=== PATIENT | female | born 1965 | race Two or more races ===

== ENCOUNTER 2016-10-03 13:20 | Emergency (ER) | payer MEDICARE ==
[2016-10-03 13:27] VITALS: TEMP 98.7; BMI 23.6
[2016-10-03] MEDS ORDERED: SODIUM CHLORIDE 1,000 ML IV STA (15:11)
[2016-10-03] MEDS ORDERED: ONDANSETRON 4 MG/2 ML VIAL IVPUSH ONE (15:11)
--- NOTE | 2016-10-03 15:11 | PDOC ---
History of Present Illness - General History Source: Patient Exam Limitations: No Limitations - History of Present Illness Initial Comments: 10/03/16 15:33 The patient is a 51 year old female, with a significant past medical history of cardiac disease, diabetes, hypertension, hyperlipidemia, and chronic neck pain, who presents to the emergency department complaining of dizziness s/p cortisone injection for neck pain 3 days ago. The patient reports she received her injection in her right upper back. The patient reports paresthesias to the left side of her face. She reports weakness and paresthesias to her arms bilaterally. She reports nausea and vomiting secondary to dizziness earlier today. The patient describes her dizziness as if the room were spinning. Patient reports her pain is exacerbated when turning her head, and does not report any alleviating factors. She denies any chest pain, shortness of breath, diaphoresis, or palpitations. She denies any fever, chills, cough, headache, or dizziness. She denies any diarrhea, constipation, or changes in urination patterns. Allergies: NKDA, Pork/Porcine containing products, peppers Past Surgical History: Tubal Ligation, Cholecystectomy Social History: Non-smoker. Denies alcohol or drug use. PCP:Dr. Pina <Orlando Hunter - Last Filed: 10/03/16 17:36> <Deanne Srivastava - Last Filed: 10/05/16 12:27> - General Chief Complaint: Lightheaded Stated Complaint: VOMITING, DIZIZNESS Time Seen by Provider: 10/03/16 14:59 Past History <Orlando Hunter - Last Filed: 10/03/16 17:36> - Past Medical History Cardiac Disorders: Yes (palpitations) Diabetes: Yes GI Disorders: Yes HTN: Yes Hypercholesterolemia: Yes Suicide Attempt (Hx): No - Surgical History Abdominal Surgery: Yes (TUBAL LIGATION) Cholecystectomy: Yes - Psycho/Social/Smoking Cessation Hx Anxiety: No Suicidal Ideation: No Smoking Status: No Smoking History: Never smoked Have you smoked in the past 12 months: No Number of Cigarettes Smoked Daily: 0 If you are a former smoker, when did you quit?: > 10 yrs ago Information on smoking cessation initiated: No Hx Alcohol Use: No Drug/Substance Use Hx: No Substance Use Type: None Hx Substance Use Treatment: No <Deanne Srivastava - Last Filed: 10/05/16 12:27> - Past Medical History Allergies/Adverse Reactions: Allergies Allergy/AdvReac Type Severity Reaction Status Date / Time No Known Drug Allergies Allergy Verified 10/03/16 13:27 Pork/Porcine Containing Allergy Rash Verified 10/03/16 13:27 Products [Pork/Porcine Product Derivatives] "EQUATORIAL GUINEAN SPICES" AdvReac Uncoded 10/03/16 13:27 Home Medications: Ambulatory Orders Acetaminophen W/ Codeine #3 [Tylenol # 3 -] 1 tab PO Q6H PRN 10/03/16 Atorvastatin Ca [Lipitor] 10 mg PO HS 10/03/16 Cholecalciferol (Vitamin D3) [Vitamin D3] 5,000 unit PO DAILY 10/03/16 Famotidine [Pepcid] 20 mg PO DAILY 10/03/16 Meclizine HCl [Antivert -] 25 mg PO QID PRN #20 tablet 10/03/16 Metformin HCl [Metformin HCl ER] 500 mg PO DAILY 10/03/16 Pantoprazole Sodium [Protonix] 40 mg PO DAILY 10/03/16 Review of Systems - Review of Systems Able to Perform ROS?: Yes Comments:: 10/03/16 15:19 GENERAL/CONSTITUTIONAL: No fever or chills. HEAD, EYES, EARS, NOSE AND THROAT: No change in vision. No ear pain or discharge. No sore throat. CARDIOVASCULAR: No chest pain or shortness of breath. RESPIRATORY: No cough, wheezing, or hemoptysis. GASTROINTESTINAL: Yes: +Nausea, +vomiting. No diarrhea or constipation. GENITOURINARY: No dysuria, frequency, or change in urination. MUSCULOSKELETAL: Yes:+Weakness and paresthesias in arms bilaterally. No joint or muscle swelling or pain. No neck or back pain. SKIN: No rash NEUROLOGIC: Yes: +dizziness, +vertigo, +paresthesias to the left side of face. No headache, loss of consciousness, or change in strength. ENDOCRINE: No increased thirst. No abnormal weight change. HEMATOLOGIC/LYMPHATIC: No anemia, easy bleeding, or history of blood clots. ALLERGIC/IMMUNOLOGIC: No hives or skin allergy. <HunterGiomilsy - Last Filed: 10/03/16 17:36> *Physical Exam - Vital Signs Last Vital Signs Temp Pulse Resp BP Pulse Ox 98.7 F 74 18 138/99 98 10/03/16 13:24 10/03/16 13:24 10/03/16 13:24 10/03/16 13:24 10/03/16 13:24 - Physical Exam Comments: 10/03/16 15:18 GENERAL: Awake, alert, and fully oriented, in no acute distress HEAD: No signs of trauma. EYES: PERRLA, EOMI, sclera anicteric, conjunctiva clear ENT: Auricles normal inspection, hearing grossly normal, TMs normal bilaterally , nares patent, oropharynx clear without exudates. Dry mucosa. Symptoms were elicited by turning head side to side. NECK: Normal ROM, supple, no lymphadenopathy, JVD, or masses LUNGS: Breath sounds equal, clear to auscultation bilaterally. No wheezes, and no crackles HEART: Regular rate and rhythm, normal S1 and S2, no murmurs, rubs or gallops ABDOMEN: Soft, nontender, normoactive bowel sounds. No guarding, no rebound. No masses EXTREMITIES: Normal range of motion, no edema. No clubbing or cyanosis. No cords, erythema, or tenderness NEUROLOGICAL: Cranial nerves II through XII grossly intact. Normal speech, normal gait SKIN: Warm, Dry, normal turgor, no rashes or lesions noted. <Orlando Hunter - Last Filed: 10/03/16 17:36> - Vital Signs Last Vital Signs Temp Pulse Resp BP Pulse Ox 98.7 F 74 18 138/99 98 10/03/16 13:24 10/03/16 13:24 10/03/16 13:24 10/03/16 13:24 10/03/16 13:24 <Deanne Srivastava - Last Filed: 10/05/16 12:27> ED Treatment Course - LABORATORY CBC & Chemistry Diagram: 10/03/16 15:15 10/03/16 15:15 - RADIOLOGY Radiograph Interpretation: 10/03/16 16:46 EXAM: Head CT INTERPRETED BY: Dr. Hernandez REVIEWED BY: Dr. Srivastava IMPRESSION: Negative exam. No definite CT abnormality is identified. <Orlando Hunter - Last Filed: 10/03/16 17:36> - LABORATORY CBC & Chemistry Diagram: 10/03/16 15:15 10/03/16 15:15 <Deanne Srivastava - Last Filed: 10/05/16 12:27> Medical Decision Making - Medical Decision Making 10/03/16 17:43 Pt reassessed. She states her symptoms have resolved with zofran, IVF, and meclizine. CTH and labs reviewed, no acute findings. Stable for DC home. <Deanne Srivastava - Last Filed: 10/05/16 12:27> *DC/Admit/Observation/Transfer - Attestations Scribe Attestion: 10/03/16 15:18 Documentation prepared by Orlando Hunter, acting as medical investigator for Deanne Srivastava MD. <Orlando Hunter - Last Filed: 10/03/16 17:36> - Discharge Dispostion Admit: No <Deanne Srivastava - Last Filed: 10/05/16 12:27> Diagnosis at time of Disposition: Vertigo - Discharge Dispostion Disposition: HOME Condition at time of disposition: Improved - Prescriptions Prescriptions: Meclizine HCl [Antivert -] 25 mg PO QID PRN #20 tablet PRN Reason: Vertigo - Referrals Referrals: Ashley Pina [Primary Care Provider] - - Patient Instructions Printed Discharge Instructions: DI for Vertigo Print Language: BOTSWANAN
[2016-10-03] MEDS ORDERED: ONDANSETRON 4 MG/2 ML VIAL ONE (15:17)
[2016-10-03 15:31] LABS: BASOPHIL 0.6 % (0-2.0); EOSINOPHIL 0.6 % (0-4.5); MCH 30.6 pg (25.7-33.7); MCHC 33.9 g/dl (32.0-36.0); MEAN CELL VOLUME 90.5 fl (80-96); MEAN PLT VOLUME 8.6 fl (7.5-11.1); NEUTROPHILS 65.5 % (42.8-82.8); PLATELET COUNT 193 K/MM3 (134-434); RDW 12.8 % (11.6-15.6); WHITE BLOOD COUNT 8.4 K/mm3 (4.0-10.0)
[2016-10-03 15:58] LABS: ALBUMIN 3.7 g/dl (3.4-5.0); ANION GAP 6 (8-16); BILIRUBIN,TOTAL 0.2 mg/dL (0.2-1.0); CALCIUM 8.9 mg/dL (8.5-10.1); CO2 30 mmol/L (21-32); COCKROFT - GAULT 94.435; CREATININE 0.7 mg/dL (0.55-1.02); GLUCOSE,RANDOM 118 mg/dL (74-106); SGOT/AST 18 U/L (15-37); SGPT/ALT 31 U/L (12-78); TOT PROT 7.4 g/dl (6.4-8.2)
[2016-10-03 15:59] LABS: ALK PHOS 84 U/L (45-117)
[2016-10-03] MEDS ORDERED: MECLIZINE HCL 25 MG TABLET (FP) PO ONE (16:47)
[2016-10-03] MEDS ORDERED: MECLIZINE HCL 25 MG TABLET (FP) ONE (16:50)
[2016-10-03 17:59] VITALS: BP 141/87; PULSE 64
--- NOTE | 2016-10-04 12:28 | EKG ---
Test Reason : Blood Pressure : / mmHG Vent. Rate : 065 BPM Atrial Rate : 065 BPM P-R Int : 158 ms QRS Dur : 076 ms QT Int : 398 ms P-R-T Axes : 030 023 021 degrees QTc Int : 413 ms NORMAL SINUS RHYTHM WHEN COMPARED WITH ECG OF 28-AUG-2011 12:47, NONSPECIFIC T WAVE ABNORMALITY HAS REPLACED INVERTED T WAVES IN ANTERIOR LEADS Confirmed by TOYA ALVAREZ MD ([id number]) on 10/04/2016 12:28:20 PM Referred By: Confirmed By:TOYA ALVAREZ MD
== END 2016-10-03 17:59 | disposition home or self-care (01) ==
LOC: JER 13:20
PROC: 3E033GC Introduction of Other Therapeutic Substance into Peripheral Vein, Percutaneous Approach (ICD-10-PCS; principal; 2016-10-03)
DX: R42 Dizziness and giddiness (principal); I10 Essential (primary) hypertension; E11.9 Type 2 diabetes mellitus without complications; Z79.84 Long term (current) use of oral hypoglycemic drugs; E00.2 Congenital iodine-deficiency syndrome, mixed type; E78.00 Pure hypercholesterolemia, unspecified
CPT/HCPCS: 36415; 70450-TC; 80053; 85025; 93005; 93010; 96374; 99284-25

== ENCOUNTER 2017-07-15 07:04 | Emergency (ER) | payer MEDICARE ==
[2017-07-15 07:17] VITALS: BP 127/93; PULSE 87; TEMP 98.2; BMI 23.3
--- NOTE | 2017-07-15 08:23 | PDOC ---
History of Present Illness - General Chief Complaint: Pain Stated Complaint: SIDE PAIN Time Seen by Provider: 07/15/17 08:23 Past History - Past Medical History Allergies/Adverse Reactions: Allergies Allergy/AdvReac Type Severity Reaction Status Date / Time No Known Drug Allergies Allergy Verified 07/15/17 07:13 Pork/Porcine Containing Allergy Rash Verified 07/15/17 07:13 Products [Pork/Porcine Product Derivatives] "LAO SPICES" AdvReac Uncoded 07/15/17 07:13 Home Medications: Ambulatory Orders Acetaminophen W/ Codeine #3 [Tylenol # 3 -] 1 tab PO Q6H PRN 10/03/16 Atorvastatin Ca [Lipitor] 10 mg PO HS 10/03/16 Cholecalciferol (Vitamin D3) [Vitamin D3] 5,000 unit PO DAILY 10/03/16 Famotidine [Pepcid] 20 mg PO DAILY 10/03/16 Meclizine HCl [Antivert -] 25 mg PO QID PRN #20 tablet 10/03/16 Metformin HCl [Metformin HCl ER] 500 mg PO DAILY 10/03/16 Pantoprazole Sodium [Protonix] 40 mg PO DAILY 10/03/16 Cardiac Disorders: Yes (palpitations) COPD: No Diabetes: Yes GI Disorders: Yes HTN: Yes Hypercholesterolemia: Yes - Surgical History Abdominal Surgery: Yes (TUBAL LIGATION) Cholecystectomy: Yes - Suicide/Smoking/Psychosocial Hx Smoking Status: No Smoking History: Never smoked Have you smoked in the past 12 months: No Number of Cigarettes Smoked Daily: 0 If you are a former smoker, when did you quit?: > 10 yrs ago Information on smoking cessation initiated: No Hx Alcohol Use: No Drug/Substance Use Hx: No Substance Use Type: None Hx Substance Use Treatment: No *Physical Exam - Vital Signs Last Vital Signs Temp Pulse Resp BP Pulse Ox 98.2 F 87 18 127/93 100 07/15/17 07:15 07/15/17 07:15 07/15/17 07:15 07/15/17 07:15 07/15/17 07:15 *DC/Admit/Observation/Transfer - Referrals Referrals: Ashley Pina [Primary Care Provider] - - Patient Instructions - Post Discharge Activity
[2017-07-15] MEDS ORDERED: ACETAMINOPHEN 500 MG TABLET (FP) PO ONE (10:17)
[2017-07-15] MEDS ORDERED: LACTATED RINGERS SOLUTION 1,000 ML/1,000 ML INFUS.BAG IV ONE (10:17)
[2017-07-15] MEDS ORDERED: ACETAMINOPHEN 325 MG TABLET (FP) ONE (10:23)
--- NOTE | 2017-07-15 10:38 | PDOC ---
History of Present Illness - General History Source: Patient Exam Limitations: No Limitations - History of Present Illness Initial Comments: 07/15/17 13:27 The patient is a 52 year old female, with a significant past medical history of cardiac disease, DM, HTN, HLD, and chronic neck pain, who presents to the emergency department with for about 3 days of right sided abdominal and flank pain. The patient reports having constant abdominal pain that often radiates to her back and flank area. She notes her pain is often made worse with certain motions of her abdomen. She ranks her pain a 8/10 in pain intenisty. She denies recent fevers, chills, headache or dizziness. She denies recent nausea, vomit, diarrhea or constipation. She denies recent dysuria, frequency, urgency or hematuria. She denies recent chest pain or shortness of breath. Allergies: NKDA Past surgical history: Recent back surgery (2 months ago). Cholecystectomy. Tubal Ligation. Social history: Nonsmoker. Denies EtOH use and recreational drug use. PCP: <Benjamin Kinney - Last Filed: 07/15/17 13:27> <Milady Rivas - Last Filed: 07/15/17 16:29> - General Chief Complaint: Pain Stated Complaint: SIDE PAIN Time Seen by Provider: 07/15/17 08:23 Past History <Benjamin Kinney - Last Filed: 07/15/17 13:27> - Past Medical History Cardiac Disorders: Yes (palpitations) COPD: No Diabetes: Yes GI Disorders: Yes HTN: Yes Hypercholesterolemia: Yes - Surgical History Abdominal Surgery: Yes (TUBAL LIGATION) Cholecystectomy: Yes - Suicide/Smoking/Psychosocial Hx Smoking Status: No Smoking History: Never smoked Have you smoked in the past 12 months: No Number of Cigarettes Smoked Daily: 0 If you are a former smoker, when did you quit?: > 10 yrs ago Information on smoking cessation initiated: No Hx Alcohol Use: No Drug/Substance Use Hx: No Substance Use Type: None Hx Substance Use Treatment: No <Milady Rivas - Last Filed: 07/15/17 16:29> - Past Medical History Allergies/Adverse Reactions: Allergies Allergy/AdvReac Type Severity Reaction Status Date / Time No Known Drug Allergies Allergy Verified 07/15/17 07:13 Pork/Porcine Containing Allergy Rash Verified 07/15/17 07:13 Products [Pork/Porcine Product Derivatives] "DUTCH SPICES" AdvReac Uncoded 07/15/17 07:13 Home Medications: Ambulatory Orders Acetaminophen W/ Codeine #3 [Tylenol # 3 -] 1 tab PO Q6H PRN 10/03/16 Atorvastatin Ca [Lipitor] 10 mg PO HS 10/03/16 Meclizine HCl [Antivert -] 25 mg PO QID PRN #20 tablet 10/03/16 Metformin HCl [Metformin HCl ER] 500 mg PO DAILY 10/03/16 Pantoprazole Sodium [Protonix] 40 mg PO DAILY 10/03/16 Cyclobenzaprine HCl [Flexeril -] 10 mg PO BID 07/15/17 Gabapentin [Neurontin -] 100 mg PO Q8H 07/15/17 Metoclopramide HCl [Reglan] 5 mg PO TID 07/15/17 Review of Systems - Review of Systems Able to Perform ROS?: Yes Comments:: 07/15/17 13:27 GENERAL/CONSTITUTIONAL: No fever or chills. No weakness. HEAD, EYES, EARS, NOSE AND THROAT: No change in vision. No ear pain or discharge. No sore throat. GASTROINTESTINAL: (+) Flank pain and abdominal pain. No nausea, vomiting, diarrhea or constipation. GENITOURINARY: No dysuria, frequency, or change in urination. CARDIOVASCULAR: No chest pain or shortness of breath. RESPIRATORY: No cough, wheezing, or hemoptysis. MUSCULOSKELETAL: No joint or muscle swelling or pain. No neck or back pain. SKIN: No rash NEUROLOGIC: No headache, vertigo, loss of consciousness, or change in strength/ sensation. ENDOCRINE: No increased thirst. No abnormal weight change. HEMATOLOGIC/LYMPHATIC: No anemia, easy bleeding, or history of blood clots. ALLERGIC/IMMUNOLOGIC: No hives or skin allergy. <Benjamin Kinney - Last Filed: 07/15/17 13:27> *Physical Exam - Vital Signs Last Vital Signs Temp Pulse Resp BP Pulse Ox 98.2 F 87 18 127/93 100 07/15/17 07:15 07/15/17 07:15 07/15/17 07:15 07/15/17 07:15 07/15/17 07:15 - Physical Exam Comments: 07/15/17 13:27 GENERAL: Awake, alert, and fully oriented, in no acute distress HEAD: No signs of trauma EYES: PERRLA, EOMI, sclera anicteric, conjunctiva clear ENT: Auricles normal inspection, hearing grossly normal, nares patent, oropharynx clear without exudates. Moist mucosa NECK: Normal ROM, supple, no lymphadenopathy, JVD, or masses LUNGS: Breath sounds equal, clear to auscultation bilaterally. No wheezes, and no crackles HEART: Regular rate and rhythm, normal S1 and S2, no murmurs, rubs or gallops ABDOMEN: Soft, RUQ andRLQ tenderness to palpation, normoactive bowel sounds. No guarding, no rebound. No masses. No CVAT EXTREMITIES: Normal range of motion, no edema. No clubbing or cyanosis. No cords , erythema, or tenderness BACK: No midline spinal tenderness in cervical/thoracic/lumbar region NEUROLOGICAL: Normal speech, cranial nerves intact, negative pronator drift, 5/ 5 strength in all 4 extremities, normal sensation to light touch in all 4 extremities, normal cerebellar exam, normal gait, normal reflexes and tone SKIN: Warm, Dry, Surgical wound on lumbar spine c/d/i <Benjamin Kinney - Last Filed: 07/15/17 13:27> - Vital Signs Last Vital Signs Temp Pulse Resp BP Pulse Ox 98.2 F 87 18 127/93 100 07/15/17 07:15 07/15/17 07:15 07/15/17 07:15 07/15/17 07:15 07/15/17 07:15 <Milady Rivas - Last Filed: 07/15/17 16:29> ED Treatment Course - LABORATORY CBC & Chemistry Diagram: 07/15/17 10:27 07/15/17 10:27 - ADDITIONAL ORDERS Additional order review: Laboratory Results 07/15/17 07/15/17 10:41 10:27 Sodium 139 Potassium 4.0 Chloride 102 Carbon Dioxide 29 Anion Gap 8 BUN 9 Creatinine 0.7 Creat Clearance w eGFR > 60 Random Glucose 87 Calcium 8.6 Total Bilirubin 0.5 D AST 16 ALT 23 Alkaline Phosphatase 101 Troponin I < 0.02 Total Protein 8.3 H Albumin 4.4 Lipase 170 Urine Color Yellow Urine Appearance Clear Urine pH 5.0 Ur Specific Humble 1.019 Urine Protein Negative Urine Glucose (UA) Negative Urine Ketones Negative Urine Blood Negative Urine Nitrite Negative Urine Bilirubin Negative Urine Urobilinogen Negative Ur Leukocyte Esterase Negative 07/15/17 10:27 RBC 4.80 MCV 87.5 MCHC 33.9 RDW 13.3 MPV 8.4 Neutrophils % 60.0 Lymphocytes % 33.1 D Monocytes % 5.7 Eosinophils % 0.8 Basophils % 0.4 - Medications Given in the ED: ED Medications Discontinued Medications Generic Name Dose Route Start Last Admin Trade Name Zackary PRN Reason Stop Dose Admin Acetaminophen 1,000 mg 07/15/17 10:17 07/15/17 10:42 Tylenol - PO 07/15/17 10:18 1,000 mg ONCE ONE Administration Lactated Ringer's 1,000 ml in 1,000 mls @ 1,000 mls/hr 07/15/17 10:17 10:42 Lactated Ringers Solution IV 07/15/17 11:16 1,000 mls/hr ONCE ONE Administration Morphine Sulfate 4 mg 07/15/17 12:41 07/15/17 12:54 Morphine Injection - IVPUSH 07/15/17 12:42 4 mg ONCE ONE Administration <Benjamin Kinney - Last Filed: 07/15/17 13:27> - LABORATORY CBC & Chemistry Diagram: 07/15/17 10:27 07/15/17 10:27 - RADIOLOGY Radiology Studies Ordered: Category Date Time Status ABDOMEN US -LIMITED [US] Stat Ultrasound 07/15/17 10:17 Ordered <Milady Rivas - Last Filed: 07/15/17 16:29> Medical Decision Making - Medical Decision Making 07/15/17 10:57 52-year-old female hx cholecystectomy and back surgery 2 months ago presents with right-sided abdominal pain. Vitals are unremarkable. Exam remarkable for right upper and lower quadrant tenderness to palpation. Differential includes but is not limited to retained stone versus pancreatitis versus colitis versus appendicitis. We'll obtain labs, urinalysis and right upper quadrant ultrasound. If ultrasound is not revealing, will consider a CT scan for further evaluation of abdominal pain. IV tylenol ordered for pain control. 07/15/17 13:03 Labs, ultrasound, urinalysis unremarkable. On reevaluation, patient reports the pain is now worse in the right lower quadrant. Will obtain a CT scan to evaluate for appendicitis or other acute pathology. I also ordered morphine for pain control. Given prolonged length of stay patient has been put on ED observation pending disposition. 07/15/17 13:07 Case discussed with Resident Dr. Rosario as pt is currently ED obs. 07/15/17 16:27 CT scan with no acute pathology and no renal colic. Appendix appears normal. Patient reports significant improvement in symptoms and requests discharge home. Fatty liver was seen on the ultrasound and CT scan and may possibly be causing her pain. Sxs may also be 2/2 musculoskeletal pain as patient states it' s worse with twisting movements. Will discharge patient to follow up with her primary doctor within 1 week. I discussed the physical exam findings, ancillary test results and final diagnoses with the patient. I answered all of the patient's questions. The patient was satisfied with the care received and felt comfortable with the discharge plan and treatment plan. The patient will call their primary care physician within 24 hours to arrange follow-up and will return to the Emergency Department with any new, persistent or worsening symptoms. <Milady Rivas - Last Filed: 07/15/17 16:29> *DC/Admit/Observation/Transfer - Attestations Scribe Attestion: 07/15/17 13:28 Documentation prepared by Benjamin Kinney, acting as medical language specialist for Milady Rivas MD. <Benjamin Kinney - Last Filed: 07/15/17 13:27> - Discharge Dispostion Admit: No - Attestations Physician Attestion: 07/15/17 16:29 I, Dr. Milady Rivas MD, attest that this document has been prepared under my direction and personally reviewed by me in its entirety. I further attest, that it accurately reflects all work, treatment, procedures and medical decision -making performed by me. <Milady Rivas - Last Filed: 07/15/17 16:29> Diagnosis at time of Disposition: Flank pain - Discharge Dispostion Disposition: HOME Condition at time of disposition: Stable - Referrals Referrals: Ashley Pina [Primary Care Provider] - - Patient Instructions Printed Discharge Instructions: DI for Flank Pain Additional Instructions: Follow-up with your primary care doctor within 1 week. Return to emergency department if you have any new, worsening or concerning symptoms. Print Language: ALBANIAN - Post Discharge Activity
[2017-07-15 10:41] LABS: BASO % 0.4 % (0-2.0); EOS % 0.8 % (0-4.5); HEMOGLOBIN 14.2 GM/dL (10.7-15.3); LYMPH % 33.1 % (8-40); MCH 29.7 pg (25.7-33.7); MCHC 33.9 g/dl (32.0-36.0); MEAN CELL VOLUME 87.5 fl (80-96); MEAN PLT VOLUME 8.4 fl (7.5-11.1); MONO % 5.7 % (3.8-10.2); PLATELET COUNT 228 K/MM3 (134-434); RDW 13.3 % (11.6-15.6); WHITE BLOOD COUNT 6.3 K/mm3 (4.0-10.0)
[2017-07-15 10:54] LABS: URINE APPEARANCE CLEAR; URINE BILIRUBIN NEGATIVE (NEGATIVE); URINE BLOOD NEGATIVE (NEGATIVE); URINE COLOR YELLOW; URINE GLUCOSE (UA) NEGATIVE (NEGATIVE); URINE KETONE NEGATIVE (NEGATIVE); URINE LEUK ESTERASE NEGATIVE (NEGATIVE); URINE NITRITE NEGATIVE (NEGATIVE); URINE PROTEIN NEGATIVE (NEGATIVE); URINE UROBILINOGEN NEGATIVE mg/dL (0.2-1.0)
[2017-07-15 11:10] LABS: ALBUMIN 4.4 g/dl (3.4-5.0); ANION GAP 8 (8-16); BLOOD UREA NITROGEN 9 mg/dL (7-18); CALCIUM 8.6 mg/dL (8.5-10.1); CHLORIDE 102 mmol/L (98-107); CO2 29 mmol/L (21-32); CREATININE 0.7 mg/dL (0.55-1.02); GLUCOSE,RANDOM 87 mg/dL (74-106); LIPASE 170 U/L (73-393); SGOT/AST 16 U/L (15-37); SGPT/ALT 23 U/L (12-78); SODIUM 139 mmol/L (136-145)
[2017-07-15 11:14] LABS: ALK PHOS 101 U/L (45-117); BILIRUBIN,TOTAL 0.5 mg/dL (0.2-1.0); TOT PROT 8.3 g/dl (6.4-8.2)
[2017-07-15] MEDS ORDERED: morphine CARPU-JECT 4 MG/1 ML DISP.SYRIN IVPUSH ONE (12:41)
[2017-07-15] MEDS ORDERED: MORPHINE SULFATE 10 MG/1 ML *VIAL ONE (12:45)
== END 2017-07-15 16:34 | disposition home or self-care (01) ==
LOC: JER 07:04 → JERBED 12:40 → UNDOADMOB 12:40 → JER 16:34
PROC: 3E0337Z Introduction of Electrolytic and Water Balance Substance into Peripheral Vein, Percutaneous Approach (ICD-10-PCS; principal; 2017-07-15)
PROC: 3E033NZ Introduction of Analgesics, Hypnotics, Sedatives into Peripheral Vein, Percutaneous Approach (ICD-10-PCS; 2017-07-15)
DX: R10.31 Right lower quadrant pain (principal); I10 Essential (primary) hypertension; E11.9 Type 2 diabetes mellitus without complications; Z79.84 Long term (current) use of oral hypoglycemic drugs; E78.00 Pure hypercholesterolemia, unspecified; M54.2 Cervicalgia; G89.29 Other chronic pain
CPT/HCPCS: 36415; 74177-TC; 76705-TC; 80053; 81003; 83690; 84484; 85025; 87086; 99282-25

== ENCOUNTER 2022-11-10 04:35 | Day surgery (SDC) | payer OTHER ==
[2022-11-05 16:39] VITALS: BMI 23.3
[2022-11-10 09:08] VITALS: TEMP 97.9
[2022-11-10 09:39] VITALS: BP 99/68; PULSE 71; RESP 14
== END 2022-11-10 09:42 | disposition home or self-care (01) ==
LOC: JASU-ENDO 04:35
PROVIDERS: ATTEND Student in an Organized Health Care Education/Training Program
PROC: 0DB48ZX Excision of Esophagogastric Junction, Via Natural or Artificial Opening Endoscopic, Diagnostic (ICD-10-PCS; 2022-11-10)
PROC: 0DB78ZX Excision of Stomach, Pylorus, Via Natural or Artificial Opening Endoscopic, Diagnostic (ICD-10-PCS; 2022-11-10)
PROC: 0DB68ZX Excision of Stomach, Via Natural or Artificial Opening Endoscopic, Diagnostic (ICD-10-PCS; 2022-11-10)
PROC: 0DB68ZX Excision of Stomach, Via Natural or Artificial Opening Endoscopic, Diagnostic (ICD-10-PCS; principal; 2022-11-10 09:00)
DX: K29.50 Unspecified chronic gastritis without bleeding (principal); K31.7 Polyp of stomach and duodenum; K20.90 Esophagitis, unspecified without bleeding; I10 Essential (primary) hypertension; E11.9 Type 2 diabetes mellitus without complications; Z79.84 Long term (current) use of oral hypoglycemic drugs
CPT/HCPCS: 82962; 88305-TC; 88342-TC

== ENCOUNTER 2024-05-16 13:08 | Emergency (ER) | payer OTHER ==
[2024-05-16 13:16] VITALS: BP 145/94; PULSE 95; RESP 16; TEMP 98.4; BMI 24.0
[2024-05-16] MEDS ORDERED: ACETAMINOPHEN 325 MG TABLET (FP) ONE (13:54)
[2024-05-16] MEDS ORDERED: LIDOCAINE 4% PATCH TP ONE (14:10)
[2024-05-16] MEDS: LIDOCAINE 4% PATCH TP ONE (14:13)
[2024-05-16] MEDS: ACETAMINOPHEN 500 MG TABLET (FP) PO ONE (14:13)
[2024-05-16] MEDS ORDERED: LIDOCAINE PATCH REMOVAL MC ONE (22:00)
== END 2024-05-16 14:51 | disposition home or self-care (01) ==
LOC: JERFT 13:08
DX: M25.511 Pain in right shoulder (principal); R07.81 Pleurodynia; M54.50 Low back pain, unspecified; G89.29 Other chronic pain; W00.0XXA Fall on same level due to ice and snow, initial encounter
CPT/HCPCS: 71101-TC-RT-FY; 73030-TC-RT-FY; 99284-25